=== PATIENT | female | born 1990 | race Caucasian/White ===

== ENCOUNTER 2019-04-09 11:43 | Emergency (ER) | payer MEDICAID ==
[~2019-04-09] VITALS: Ht 157.5 cm; Wt 53.0 kg
[~2019-04-09 11:43] MED LIST: PREN1TAB60 PO; [UNRECOGNIZED DRUG - CODE] PO; [UNRECOGNIZED DRUG - OTHER]
--- NOTE | 2019-04-09 11:54 | NUR ---
PIECE WORK CHECKER: PT GIVEN URINE CUP AND INSTRUCTIONS BEFORE RETURNING TO LOBBY.
[2019-04-09] MEDS ORDERED: LIDOCAINE-MPF 1%, 5ML INFIL ONE (12:00)
--- NOTE | 2019-04-09 12:20 | NUR ---
PRODUCE MANAGER: PT AMBULATORY WITH STEADY GAIT TO ROOM AT THIS TIME. KAREN
--- NOTE | 2019-04-09 12:28 | NUR ---
ERP WAS IN TO SEE PT.
[2019-04-09] MEDS ORDERED: LIDOCAINE-MPF 1%, 5ML ONE ×2 (12:32→12:46)
--- NOTE | 2019-04-09 12:36 | NUR ---
ERP WAS IN TO DISCUSS POC WITH PT AGAIN.
[2019-04-09] MEDS ORDERED: CEFTRIAXONE 250 MG ONE (12:44)
[2019-04-09] MEDS ORDERED: AZITHROMYCIN 500 MG TABLET ONE (12:45)
[2019-04-09] MEDS ORDERED: LIDOCAINE-MPF 1%, 2ML ONE (12:45)
[2019-04-09] MEDS ORDERED: AZITHROMYCIN 500 MG TABLET PO ONE (13:00)
[2019-04-09] MEDS ORDERED: CEFTRIAXONE 250 MG IM ONE (13:00)
[2019-04-09 13:05] VITALS: BP 119/69
--- NOTE | 2019-04-09 13:10 | NUR ---
PT MEDICATED PER ORDERS. NO SIGNS OF REACTION NOTED. D/C INSTRUCTIONS, MEDS & F/U APPT RV'WD WITH PT, SHE VERBALIZES UNDERSTANDING. RX GIVEN X2. PT AMBULATED OUT OF ED WITHOUT DIFFICULTY.
== END 2019-04-09 13:18 | disposition home or self-care (01) ==
LOC: ED 13:14
DX: L73.2 Hidradenitis suppurativa (principal); A54.9 Gonococcal infection, unspecified; A53.9 Syphilis, unspecified; F17.200 Nicotine dependence, unspecified, uncomplicated
CPT/HCPCS: 96372; 99283; J0696